=== PATIENT | male | born 1990 | race Caucasian/White ===

== ENCOUNTER 2020-12-17 16:11 | Emergency (ER) | payer OTHER ==
[~2020-12-17] VITALS: Ht 172.7 cm; Wt 70.0 kg
[2020-12-17] MEDS ORDERED: CYCLOBENZAPRINE10 MG PO (18:56)
[2020-12-17] MEDS ORDERED: MEDDOSEPAK PO (18:56)
[2020-12-17 19:20] VITALS: BP 136/62
== END 2020-12-17 19:21 | disposition home or self-care (01) | DRG 552 ==
LOC: ED 16:11
DX: M43.6 Torticollis (principal); F17.210 Nicotine dependence, cigarettes, uncomplicated

== ENCOUNTER 2023-01-24 19:49 | Emergency (ER) | payer OTHER ==
[~2023-01-24] VITALS: Ht 175.3 cm; Wt 150.0 kg
[~2023-01-24 19:49] MED LIST: CYCLOBENZAPRINE10 MG PO; MEDDOSEPAK PO
[2023-01-24] MEDS ORDERED: KEFLEX500 MG PO (21:40)
== END 2023-01-24 21:48 | disposition home or self-care (01) | DRG 605 ==
LOC: ED 19:49
DX: S61.032A Puncture wound without foreign body of left thumb without damage to nail, initial encounter (principal); W29.8XXA Contact with other powered hand tools and household machinery, initial encounter

== ENCOUNTER 2024-08-30 20:49 | Emergency (ER) | payer OTHER ==
[~2024-08-30] VITALS: Ht 175.3 cm; Wt 70.3 kg
[~2024-08-30 20:49] MED LIST changes: +KEFLEX500 MG PO
[2024-08-30 22:19] VITALS: BP 134/75
== END 2024-08-30 22:24 | disposition home or self-care (01) | DRG 563 ==
LOC: ED 20:49
DX: S93.501A Unspecified sprain of right great toe, initial encounter (principal); W22.09XA Striking against other stationary object, initial encounter